=== PATIENT | female | born 1960 | race Two or more races ===

== ENCOUNTER 2018-03-31 14:46 | Emergency (ER) | payer OTHER ==
[~2018-03-31] VITALS: Ht 160 cm; Wt 65.7 kg
[2018-03-31 14:49] VITALS: BP 150/81
[2018-03-31] MEDS ORDERED: LOSA1TAB7 PO (15:15)
[2018-03-31] MEDS ORDERED: KETOROLAC 30 MG/1 ML ONE (15:17)
[2018-03-31] MEDS ORDERED: KETOROLAC 30 MG/1 ML IM ONE (15:30)
== END 2018-03-31 15:51 | disposition home or self-care (01) ==
LOC: ED 15:30
DX: M25.511 Pain in right shoulder (principal); I10 Essential (primary) hypertension; X58.XXXA Exposure to other specified factors, initial encounter; Y93.89 Activity, other specified; Y92.89 Other specified places as the place of occurrence of the external cause; Y99.0 Civilian activity done for income or pay
CPT/HCPCS: 73030; 96372; 99284; J1885

== ENCOUNTER → 2021-03-14 | Outpatient (CLI) | payer OTHER ==
[~2021-03-14] MED LIST: LOSA1TAB7 PO
[2021-03-14 16:53] LABS: BASOPHILS % (AUTO) 1 % (0-1); EOSINOPHILS % (AUTO) 2 % (1-7); LYMPHOCYTES % (AUTO) 23 % (22-44); MEAN CORPUSCULAR HEMOGLOBIN 29.8 pg (27.0-34.8); MEAN CORPUSCULAR HGB CONC 33.1 g/dL (32.4-35.8); MEAN PLATELET VOLUME 7.9 fL (7.4-10.4); MONOCYTES % (AUTO) 6 % (2-9); NEUTROPHILS % (AUTO) 69 % (42-75); PLATELET COUNT 267 x10^3/uL (130-400); RED BLOOD COUNT 4.04 x10^6/uL (3.82-5.3); RED CELL DISTRIBUTION WIDTH 13.4 % (9.6-15.2)
[2021-03-14 16:55] LABS: MD NO
[2021-03-14 16:58] LABS: INTERNATIONAL NORMALIZED RATIO 0.92 (0.93-1.1); PROTHROMBIN TIME 9.9 Seconds (9.6-11.5)
[2021-03-14 17:00] LABS: ALANINE AMINOTRANSFERASE 34 U/L (12-78); ALBUMIN 4.1 g/dL (3.4-5.0); ANION GAP 7 mmol/L (5-15); CALCIUM 9.5 mg/dL (8.5-10.1); CHLORIDE 106 mmol/L (98-107)
[2021-03-14 17:03] LABS: ALKALINE PHOSPHATASE 142 U/L (45-117); BILIRUBIN,TOTAL 0.3 mg/dL (0.2-1.0); CREATININE 0.85 mg/dL (0.55-1.02); TOTAL PROTEIN 8.4 g/dL (6.4-8.2)
[2021-03-14 17:31] LABS: MICROSCOPIC INDICATED
== END | disposition home or self-care (01) ==
LOC: STAR 15:16
PROVIDERS: ATTEND Urology
DX: Z01.818 Encounter for other preprocedural examination (principal); N20.0 Calculus of kidney; Z20.822 Contact with and (suspected) exposure to COVID-19
CPT/HCPCS: 36415; 80053; 81001; 85025; 85610; 87086; 93005; U0003

== ENCOUNTER 2021-03-18 12:59 | Day surgery (SDC) | payer OTHER ==
[~2021-03-18] VITALS: Ht 157.5 cm; Wt 65.3 kg
[2021-03-18 13:20] VITALS: BP 150/84
[2021-03-18] MEDS ORDERED: CHLORHEXIDINE 15 ML UDC PO ONE (13:30)
[2021-03-18] MEDS ORDERED: LACTATED RINGERS 1,000 ML IV SCH (13:30)
[2021-03-18] MEDS ORDERED: LIDOCAINE-MPF 1%, 2ML INFIL ONE (13:30)
[2021-03-18] MEDS ORDERED: FENTANYL PF 250 MCG/5ML ONE (14:20)
[2021-03-18] MEDS ORDERED: MIDAZOLAM 1 MG/ML, 2ML ONE (14:20)
[2021-03-18] MEDS ORDERED: PROPOFOL 10 MG/ML, 20ML ONE (14:24)
[2021-03-18] MEDS ORDERED: OXYcodone 5 MG/5 ML ORAL.SOL UDC PO PRN (14:30)
[2021-03-18] MEDS ORDERED: PROMETHAZINE 25 MG/ML, 1ML IVPush PRN (14:30)
[2021-03-18] MEDS ORDERED: FENTANYL PF 100 MCG/2ML IV PRN (14:30)
[2021-03-18] MEDS ORDERED: hydrALAzine 20 MG/ML, 1ML IV PRN (14:30)
[2021-03-18] MEDS ORDERED: MEPERIDINE/PF 25MG/0.5ML IVPush PRN (14:30)
[2021-03-18] MEDS ORDERED: LABETALOL 5MG/ML, 20ML IV PRN (14:30)
[2021-03-18] MEDS ORDERED: ONDANSETRON 2MG/ML, 2ML IVPush PRN (14:30)
[2021-03-18] MEDS ORDERED: ACETAMINOPHEN 325 MG TABLET PO PRN (14:30)
[2021-03-18] MEDS ORDERED: HYDROmorphone 1 MG/ML, 1ML INJ IVPush PRN (14:30)
[2021-03-18] MEDS ORDERED: CEFAZOLIN 1,000 MG ONE (14:51)
[2021-03-18] MEDS ORDERED: ONDANSETRON 2MG/ML, 2ML ONE (15:04)
[2021-03-18] MEDS ORDERED: DEXAMETHASONE 4 MG/ML, 1ML ONE (15:04)
[2021-03-18] MEDS ORDERED: OMNIPAQUE 350 MG/ML, 50 ML BOTTLE ONE (15:10)
[2021-03-18] MEDS ORDERED: KETOROLAC 30 MG/1 ML ONE (15:12)
[2021-03-18] MEDS ORDERED: OXYcodone 5 MG/5 ML ORAL.SOL UDC ONE (16:03)
[2021-03-18] MEDS ORDERED: FENTANYL PF 100 MCG/2ML ONE (16:03)
== END 2021-03-18 18:30 | disposition home or self-care (01) ==
LOC: OR 12:59
PROVIDERS: ATTEND Urology
DX: N20.0 Calculus of kidney (principal); I10 Essential (primary) hypertension; E78.00 Pure hypercholesterolemia, unspecified; E78.5 Hyperlipidemia, unspecified; Z88.8 Allergy status to other drugs, medicaments and biological substances; Z91.040 Latex allergy status; Z79.899 Other long term (current) drug therapy; Z98.890 Other specified postprocedural states; Z87.440 Personal history of urinary (tract) infections
CPT/HCPCS: 52332; 52352; 74018; 74420; 82360; 88300; C1758; C1769; C2617; J0690; J1100; J1885; J2250; J2405; J2704; J3010; J7120; Q9967; 76000